=== PATIENT | female | born 1945 | race Caucasian/White ===

== ENCOUNTER 2019-10-05 15:18 | Emergency (ER) | payer BC ==
[~2019-10-05] VITALS: Ht 165.1 cm; Wt 86.2 kg
[~2019-10-05 15:18] MED LIST: HYDR25TA4 PO; ISOS20TA8 PO; VERA240C2 PO
[2019-10-05 15:48] VITALS: BP_SYST 142
[2019-10-05] MEDS ORDERED: D-ME473S17 PO (16:00)
[2019-10-05] MEDS ORDERED: ALBU2.5V7 INH (16:00)
[2019-10-05] MEDS ORDERED: PRED20TA PO (16:00)
--- NOTE | 2019-10-05 16:04 | NUR ---
PATIENT PRESENTS TO THE ER WITH TWO WEEK HX OF COUGH WITH DYSPNEA AND WHEEZING; NO TRAUMA, NO OTHER REMARKABLE S/S; TO ER #[id number] AT 1550 AND ERMD EVALUATION AT 1600
--- NOTE | 2019-10-05 16:06 | NUR ---
PATIENT IS ON FOOD PREPARATION WORKER WITH [employer]
[2019-10-05] MEDS ORDERED: IPRATROPIUM/ALBUTEROL SULFATE 3 ML AMPUL.NEB (DUONEB) INH ONE (16:15)
[2019-10-05] MEDS ORDERED: TERBUTALINE SULFATE 1 MG/ML VIAL SUBCUT ONE (16:15)
--- NOTE | 2019-10-05 16:32 | NUR ---
PATIENT STATES MARGINAL IMPROVEMENT IN SYMPTOMS; BREATH SOUNDS CLEARER WITH LESS WHEEZE
--- NOTE | 2019-10-05 17:17 | NUR ---
REASSESSMENT; PATIENT IS MORE EUPNEIC CURRENTLY AND BREATH SOUNDS CLEAR WITH RARE WHEEZING HEARD; DISPOSITION PENDING
[2019-10-05] MEDS ORDERED: LevALBUTEROL HCL 1.25 MG/0.5 ML *CONC.* VIAL.NEB (XOPENEX CONC.) INH ONE (17:45)
--- NOTE | 2019-10-05 18:55 | NUR ---
REASSESSMENT; PATIENT IS EUPNEIC AND BREATH SOUNDS ARE CLEAR; DISPOSITION PENDING
[2019-10-05 19:26] VITALS: BP_SYST 121
--- NOTE | 2019-10-05 19:28 | NUR ---
REASSESSMENT BY ERMD; ACI GIVEN AND PATIENT INDICATED FULL UNDERSTANDING; DISCHARGED AMBULATORY; SYMPTOMS RESOLVED; IMPROVED
--- NOTE | 2019-10-05 19:30 | NUR ---
Patient given written and verbal discharge instructions and verbalizes understanding. ER MD discussed with patient the results and treatment provided. Patient in stable condition. ID arm band removed. Rx of Tessalon Perles and Zithromax given. Patient educated on pain management and to follow up with PMD. Pain Scale 0/10 Opportunity for questions provided and answered. Medication side effect fact sheet provided.
== END 2019-10-05 19:30 | disposition home or self-care (01) ==
LOC: SED 15:18
DX: J45.901 Unspecified asthma with (acute) exacerbation (principal); I10 Essential (primary) hypertension; Z79.899 Other long term (current) drug therapy
CPT/HCPCS: 71045; 94640; 96372; 99284; J3105; J7612; J7620

== ENCOUNTER 2023-02-01 14:36 | Inpatient (IN) | payer BC, MEDICAID ==
[~2023-02-01] VITALS: Ht 152.4 cm; Wt 71.3 kg
[~2023-02-01 14:36] MED LIST changes: +ALBU2.5V7 INH; +D-ME473S17 PO; -ISOS20TA8 PO; +PRED20TA PO
[2023-02-01 14:50] VITALS: BP_SYST 145
[2023-02-01 15:49] LABS: MEAN CORPUSCULAR HEMOGLOBIN 23 pg (27-31); MEAN CORPUSCULAR HGB CONC 30 % (32-36); MEAN CORPUSCULAR VOLUME 77 fL (79.0-98.0); PLATELET COUNT (AUTO) 553 K/uL (130-430); RED CELL DISTRIBUTION WIDTH 19.4 % (9.0-15.0); WHITE BLOOD COUNT (AUTO) 11.7 K/uL (4.8-10.8)
[2023-02-01 15:50] LABS: HEMATOCRIT 17.7 % (36-48); HEMOGLOBIN 5.2 g/dL (12.0-16.0)
[2023-02-01 15:57] LABS: ANION GAP 6 (5-15); CALCIUM 7.8 mg/dL (8.4-11.0); CHLORIDE 104 mmol/L (98-107); CREATININE 1.58 mg/dL (0.55-1.30); GLUCOSE 105 mg/dL (70-99); UREA NITROGEN, BLOOD 30 mg/dL (8-21)
[2023-02-01 16:01] LABS: BILIRUBIN,URINE NEGATIVE (NEGATIVE); BLOOD, URINE NEGATIVE (NEGATIVE); CLARITY/URINE CLEAR (CLEAR); COLOR,URINE YELLOW (YELLOW); GLUCOSE,URINE NEGATIVE (NEGATIVE); KETONES,URINE NEGATIVE (NEGATIVE); LEUKOCYTE ESTERASE ,URINE 1+ (NEGATIVE); NITRITE, URINE NEGATIVE (NEGATIVE); PROTEIN URINE NEGATIVE (NEGATIVE); UROBILINOGEN,URINE 0.2 (0.2-1.0)
[2023-02-01 16:02] LABS: ALANINE AMINOTRANSFERASE 21 U/L (12-78); ALBUMIN 2.8 g/dL (3.4-4.8); ASPARTATE AMINOTRANSFERASE 18 U/L (10-37); TOTAL BILIRUBIN 0.2 mg/dL (0.0-1.0)
[2023-02-01 16:03] LABS: EOSINOPHILS % (MANUAL) 21 % (0-7); LYMPHOCYTES % (MANUAL) 9 % (20-46); MONOCYTES % (MANUAL) 5 % (0-11)
[2023-02-01 16:04] LABS: BASOPHILS % (MANUAL) 0 % (0-2)
[2023-02-01 16:13] LABS: BACTERIA,URINE RARE /HPF (None Seen); HYALINE CASTS, URINE 0-10 /LPF (None Seen); MUCUS,URINE 1+ /LPF (None Seen); WBC,URINE NONE SEEN /HPF (0-3)
[2023-02-01] MEDS ORDERED: ISOS20TA8 PO (16:44)
[2023-02-01] MEDS ORDERED: MECL-225 PO (16:44)
[2023-02-01] MEDS ORDERED: ATOR10TA68 PO (16:44)
[2023-02-01] MEDS ORDERED: PANT20TA16 PO (16:44)
[2023-02-01] MEDS ORDERED: LISI40TA13 PO (16:44)
[2023-02-01 19:00] VITALS: BP_SYST 125
[2023-02-01 20:00] VITALS: BP_SYST 125
[2023-02-01] MEDS ORDERED: NALOXONE HCL 0.4 MG/ML AMP (NARCAN) IVP PRN ×2 (22:15)
[2023-02-01] MEDS ORDERED: PROMETHAZINE-DM 6.25 MG-15 MG/5 ML UDC PO SCH (22:15)
[2023-02-01] MEDS: D5/0.45 NS 1,000 ML IV SCH (22:15)
[2023-02-01] MEDS ORDERED: ONDANSETRON HCL 4 MG/2 ML VIAL IVP PRN (22:15)
[2023-02-01] MEDS ORDERED: HYDROcodone/ACETAMIN 10-325 MG TAB PO PRN (22:15)
[2023-02-01] MEDS ORDERED: ACETAMINOPHEN 325 MG TABLET PO PRN (22:15)
[2023-02-01] MEDS ORDERED: HYDROcodone/ACETAMIN 5-325 MG TAB (NORCO/ VICODIN) PO PRN (22:15)
[2023-02-01] MEDS ORDERED: LORazepam 2 MG/ML VIAL IVP PRN (22:15)
[2023-02-02 00:08] VITALS: BP_SYST 112
[2023-02-02 03:03] VITALS: BP_SYST 112
[2023-02-02] MEDS ORDERED: IPRATROPIUM/ALBUTEROL SULFATE 3 ML AMPUL.NEB (DUONEB) ONE (03:09)
[2023-02-02] MEDS: D5/0.45 NS 1,000 ML IV SCH ×3 (03:17→18:58)
[2023-02-02] MEDS ORDERED: IPRATROPIUM/ALBUTEROL SULFATE 3 ML AMPUL.NEB (DUONEB) INH PRN (03:45)
[2023-02-02 08:03] VITALS: BP_SYST 138
[2023-02-02] MEDS: IPRATROPIUM/ALBUTEROL SULFATE 3 ML AMPUL.NEB (DUONEB) INH PRN ×4 (08:09→20:11)
[2023-02-02] MEDS: ISOSORBIDE DINITRATE 20 MG TABLET (ISORDIL) PO SCH (09:04)
[2023-02-02] MEDS: HYDROCHLOROTHIAZIDE 25 MG TABLET (HCTZ) PO SCH (09:05)
[2023-02-02] MEDS ORDERED: VERAPAMIL HCL 120 MG TABLET.SA PO ONE (10:15)
[2023-02-02] MEDS ORDERED: PANTOPRAZOLE SODIUM 40 MG TAB PO ONE ×2 (10:15→12:45)
[2023-02-02] MEDS ORDERED: MECLIZINE HCL 25 MG TABLET (ANITVERT) PO PRN (10:15)
[2023-02-02 11:32] VITALS: BP_SYST 123
[2023-02-02 12:07] LABS: HEMOGLOBIN 8.9 g/dL (12.0-16.0); MEAN CORPUSCULAR HEMOGLOBIN 25 pg (27-31); MEAN CORPUSCULAR HGB CONC 32 % (32-36); MEAN CORPUSCULAR VOLUME 78 fL (79.0-98.0); PLATELET COUNT (AUTO) 432 K/uL (130-430); RED BLOOD CELL COUNT(AUTO) 3.57 MIL/uL (4.2-6.2); RED CELL DISTRIBUTION WIDTH 17.4 % (9.0-15.0); WHITE BLOOD COUNT (AUTO) 10.9 K/uL (4.8-10.8)
[2023-02-02 12:12] LABS: ALANINE AMINOTRANSFERASE 21 U/L (12-78); ALBUMIN 2.8 g/dL (3.4-4.8); ANION GAP 4 (5-15); ASPARTATE AMINOTRANSFERASE 19 U/L (10-37); CALCIUM 8.1 mg/dL (8.4-11.0); CHLORIDE 105 mmol/L (98-107); CREATININE 1.19 mg/dL (0.55-1.30); GLUCOSE 95 mg/dL (70-99); PHOSPHORUS 3.6 mg/dL (2.7-4.5); TOTAL BILIRUBIN 0.7 mg/dL (0.0-1.0); UREA NITROGEN, BLOOD 19 mg/dL (8-21)
[2023-02-02 12:54] LABS: BASOPHILS % (MANUAL) 0 % (0-2); EOSINOPHILS % (MANUAL) 21 % (0-7); LYMPHOCYTES % (MANUAL) 17 % (20-46); MONOCYTES % (MANUAL) 11 % (0-11)
[2023-02-02 12:57] LABS: TOTAL IRON BIND. CAPACITY 398 ug/dL (250-450)
[2023-02-02] MEDS ORDERED: BISACODYL 5 MG TABLET.DR (DULCOLAX) PO ONE (17:00)
[2023-02-02] MEDS ORDERED: GOLYTELY / COLYTE SOLUTION 4 LITERS PO ONE (18:00)
[2023-02-02 18:08] VITALS: BP_SYST 130
[2023-02-02 20:00] VITALS: BP_SYST 140
[2023-02-02] MEDS ORDERED: ATORVASTATIN 10 MG TABLET PO SCH (21:00)
[2023-02-02] MEDS ORDERED: lisinopriL 20 MG TABLET PO SCH (21:00)
[2023-02-03 00:53] VITALS: BP_SYST 106
[2023-02-03 05:49] LABS: TOTAL IRON BIND. CAPACITY 410 ug/dL (250-450)
[2023-02-03 06:08] LABS: PROTHROMBIN TIME 9.9 SECS (9.5-12.5)
[2023-02-03] MEDS ORDERED: SIMETHICONE 40 MG/0.6 ML ML ONE (06:47)
[2023-02-03] MEDS ORDERED: fentaNYL CITRATE/PF 100 MCG/2 ML AMP ONE (06:48)
[2023-02-03] MEDS ORDERED: MIDAZOLAM HCL 5 MG/5 ML VIAL ONE ×2 (06:48→08:29)
[2023-02-03 08:00] VITALS: BP_SYST 158
[2023-02-03] MEDS ORDERED: DIPHENHYDRAMINE INJ 50 MG/ML VIAL ONE (08:29)
[2023-02-03] MEDS ORDERED: PANTOPRAZOLE SODIUM 40 MG TAB PO SCH ×2 (09:00)
[2023-02-03] MEDS ORDERED: VERAPAMIL HCL 120 MG TABLET.SA PO SCH (09:00)
[2023-02-03] MEDS: HYDROCHLOROTHIAZIDE 25 MG TABLET (HCTZ) PO SCH (10:06)
[2023-02-03] MEDS: ISOSORBIDE DINITRATE 20 MG TABLET (ISORDIL) PO SCH (10:06)
[2023-02-03 12:00] VITALS: BP_SYST 142
[2023-02-03] MEDS ORDERED: PRO40 PO (14:08)
[2023-02-03 15:13] VITALS: BP_SYST 142
[2023-02-04 08:07] LABS: FERRITIN 40 ng/mL (15-150)
[2023-02-04 11:08] LABS: FOLATE (FOLIC ACID) >20.0 ng/mL (>3.0)
== END 2023-02-03 16:08 | disposition home or self-care (01) | DRG 811 ==
LOC: SED 14:36 → SMU 16:22
PROVIDERS: ADMIT Specialist; ATTEND Specialist
PROC: 30233N1 Transfusion of Nonautologous Red Blood Cells into Peripheral Vein, Percutaneous Approach (ICD-10-PCS; 2023-02-01)
PROC: 0DB78ZX Excision of Stomach, Pylorus, Via Natural or Artificial Opening Endoscopic, Diagnostic (ICD-10-PCS; principal; 2023-02-03 10:00)
PROC: 0DBN8ZX Excision of Sigmoid Colon, Via Natural or Artificial Opening Endoscopic, Diagnostic (ICD-10-PCS; 2023-02-03 10:00)
DX: D64.81 Anemia due to antineoplastic chemotherapy (principal); N17.0 Acute kidney failure with tubular necrosis; E44.0 Moderate protein-calorie malnutrition; K25.9 Gastric ulcer, unspecified as acute or chronic, without hemorrhage or perforation; K29.70 Gastritis, unspecified, without bleeding; K63.5 Polyp of colon; K64.4 Residual hemorrhoidal skin tags; I10 Essential (primary) hypertension; J45.909 Unspecified asthma, uncomplicated; Z68.30 Body mass index [BMI] 30.0-30.9, adult; T45.1X5A Adverse effect of antineoplastic and immunosuppressive drugs, initial encounter
CPT/HCPCS: 36415; 43239; 45380; 71045; 76770; 80053; 81000; 82607; 82728; 82746; 83010; 83540; 83550; 83605; 83735; 84100; 85007; 85027; 85044; 85610-TC; 86431; 86886; 86900; 86901; 86920; 87040; 87081; 88305; 88312; 88313; 94640; 94760; 99285; J1200; J2250; J3010; P9021

== ENCOUNTER 2023-02-14 18:33 | Emergency (ER) | payer BC, MEDICAID ==
[~2023-02-14] VITALS: Ht 157.5 cm; Wt 90.7 kg
[~2023-02-14 18:33] MED LIST changes: +ATOR10TA68 PO; -D-ME473S17 PO; +ISOS20TA8 PO; +LISI40TA13 PO; +MECL-225 PO; +PANT20TA16 PO; -PRED20TA PO; +PRO40 PO
[2023-02-14 18:35] VITALS: BP_SYST 121
--- NOTE | 2023-02-14 18:35 | NUR ---
Patient triaged and placed in waiting room. VSS and patient appears in no acute distress at this time. Accompanied by SELF, awaiting available bed, and MD notified of need for MSE.
--- NOTE | 2023-02-14 18:40 | NUR ---
DR SAMANIEGO OUT TO TRIAGE ROOM FOR EVALUATION
[2023-02-14 19:41] LABS: HEMATOCRIT 30.3 % (36-48); HEMOGLOBIN 9.4 g/dL (12.0-16.0); MEAN CORPUSCULAR HEMOGLOBIN 25 pg (27-31); MEAN CORPUSCULAR HGB CONC 31 % (32-36); MEAN CORPUSCULAR VOLUME 81 fL (79.0-98.0); PLATELET COUNT (AUTO) 310 K/uL (130-430); RED BLOOD CELL COUNT(AUTO) 3.76 MIL/uL (4.2-6.2); RED CELL DISTRIBUTION WIDTH 19.6 % (9.0-15.0); WHITE BLOOD COUNT (AUTO) 11.4 K/uL (4.8-10.8)
[2023-02-14 19:45] LABS: ANION GAP 7 (5-15); CALCIUM 8.5 mg/dL (8.4-11.0); CHLORIDE 102 mmol/L (98-107); CREATININE 1.88 mg/dL (0.55-1.30); GLUCOSE 111 mg/dL (70-99); UREA NITROGEN, BLOOD 29 mg/dL (8-21)
[2023-02-14 19:52] LABS: ALANINE AMINOTRANSFERASE 31 U/L (12-78); ALBUMIN 3.1 g/dL (3.4-4.8); ASPARTATE AMINOTRANSFERASE 35 U/L (10-37); TOTAL BILIRUBIN 0.2 mg/dL (0.0-1.0)
[2023-02-14 20:08] LABS: BAND % (MANUAL) 0 % (0-6); BASOPHILS % (MANUAL) 0 % (0-2); EOSINOPHILS % (MANUAL) 30 % (0-7); LYMPHOCYTES % (MANUAL) 9 % (20-46); MONOCYTES % (MANUAL) 4 % (0-11)
[2023-02-14 20:36] LABS: PROTHROMBIN TIME 10.1 SECS (9.5-12.5)
[2023-02-14 21:18] LABS: BLOOD, URINE NEGATIVE (NEGATIVE); CLARITY/URINE SL CLOUDY (CLEAR); GLUCOSE,URINE NEGATIVE (NEGATIVE); KETONES,URINE 1+ (NEGATIVE); LEUKOCYTE ESTERASE ,URINE 1+ (NEGATIVE); PROTEIN URINE TRACE (NEGATIVE)
[2023-02-14 21:34] LABS: BILIRUBIN,URINE NEGATIVE (NEGATIVE)
[2023-02-14 21:39] LABS: BACTERIA,URINE RARE /HPF (None Seen); CALCIUM OXALATE CRYSTALS,UR 0-10 /HPF (None Seen); HYALINE CASTS, URINE 0-10 /LPF (None Seen); MUCUS,URINE 1+ /LPF (None Seen); NITRITE, URINE POSITIVE (NEGATIVE); RBC,URINE 0-3 /HPF (0-3)
[2023-02-14 21:41] LABS: COLOR,URINE RED (YELLOW)
[2023-02-14] MEDS ORDERED: CEPH-548 PO (21:45)
[2023-02-14] MEDS ORDERED: cephALEXin 500 MG CAPSULE PO ONE (22:00)
[2023-02-14 22:05] VITALS: BP_SYST 121
--- NOTE | 2023-02-14 22:20 | NUR ---
Patient given written and verbal discharge instructions and verbalizes understanding. ER MD discussed with patient the results and treatment provided. Patient in stable condition. ID arm band removed. UTIpain management and to follow up with PMD. Pain Scale []. Opportunity for questions provided and answered. Medication side effect fact sheet provided.
== END 2023-02-14 22:04 | disposition home or self-care (01) ==
LOC: SED 18:33
DX: N30.01 Acute cystitis with hematuria (principal); N17.9 Acute kidney failure, unspecified; J45.909 Unspecified asthma, uncomplicated; I10 Essential (primary) hypertension; Z79.899 Other long term (current) drug therapy
CPT/HCPCS: 36415; 80053; 81000; 85007; 85027; 85610-TC; 99283